=== PATIENT | female | born 1945 | race Two or more races ===

== ENCOUNTER 2024-09-30 10:35 | Emergency (ER) | payer OTHER ==
[~2024-09-30] VITALS: Ht 154.9 cm; Wt 54.4 kg
[2024-09-30] MEDS ORDERED: NAMENDA1 EACH PO (12:05)
[2024-09-30] MEDS ORDERED: RAZADYNE ER16 MG PO (12:05)
[2024-09-30] MEDS ORDERED: ADULT LOW DOSE81 M1 PO (12:05)
[2024-09-30] MEDS ORDERED: METOPROLOL SUCC25 MG PO (12:06)
[2024-09-30] MEDS ORDERED: IRBESARTAN150 MG PO (12:06)
[2024-09-30] MEDS ORDERED: ZOLOFT50 MG PO (12:06)
[2024-09-30] MEDS ORDERED: PEPCID AC20 MG PO (12:07)
[2024-09-30] MEDS ORDERED: BUSPIRONE HCL10 MG PO (12:07)
[2024-09-30] MEDS ORDERED: CRESTOR40 MG PO (12:08)
[2024-09-30] MEDS ORDERED: LACTOBACILLUS ACIDOPHILUS 1 CAP CAP PO ONE ×2 (13:15→13:36)
[2024-09-30 13:36] LABS: HEMOGLOBIN 12.4 g/dL (12.0-15.00); MEAN CELL VOLUME 89.3 fL (80.00-100.00); MEAN CORPUSCULAR HEMOGLOBIN 29.9 pg (27.00-32.0); MEAN CORPUSCULAR HGB CONC 33.5 g/dl (32.0-36.0); PLATELET COUNT 245 K/uL (150-450); RED BLOOD COUNT 4.14 M/uL (4.00-6.00)
[2024-09-30 14:50] LABS: BILIRUBIN TOTAL 0.44 mg/dL (0.3-1.2); CALCIUM 9.4 mg/dL (8.5-10.1); CREATININE SERUM 0.84 mg/dL (0.55-1.02); GFR 65.24; GLOBULINA 3.3 G/DL (2.4-3.5); POTASSIUM 4.23 mEq/L (3.5-5.1); TOTAL PROTEIN 7.3 gm/dL (6.4-8.2)
[2024-09-30 14:57] LABS: PH,URINE 5.5 (5.0-8.0); URINE APPEARANCE Clear; URINE BILIRRUBIN Negative (NEGATIVE); URINE BLOOD Negative; URINE COLOR Dark Yellow; URINE GLUCOSE Negative (NEGATIVE); URINE KETONE Trace (NEGATIVE); URINE LEUKOCYTE Trace; URINE NITRATE Negative; URINE PROTEIN Trace (NEGATIVE)
[2024-09-30 15:07] LABS: URINE BACTERIA 78.3 uL (0.0-1933); URINE WBC 9.3 uL (0.0-23.2)
[2024-09-30 15:40] LABS: URINE CAST 0.73 uL (0.0-1.40)
[2024-09-30 15:41] LABS: URINE MUCUS SCANT
[2024-09-30] MEDS ORDERED: PHENAZOPYRIDINE HCL 100 MG TABLET PO ONE ×2 (16:15→16:16)
== END 2024-09-30 16:25 | disposition home or self-care (01) ==
LOC: ER 10:38
PROVIDERS: Emergency Medicine
DX: R07.9 Chest pain, unspecified (principal); R68.89 Other general symptoms and signs; R14.0 Abdominal distension (gaseous)